=== PATIENT | female | born 1930 | race Hispanic/Latino ===

== ENCOUNTER 2018-03-07 07:04 | Emergency (ER) | payer MEDICARE ==
[~2018-03-07 07:04] MED LIST: FURO40TA5 PO; INSLAN SQ; LEVO500T2 PO; LEVO75TA10 PO; LORA10TA7 PO; PRAV40TA3 PO; VALS1TAB77 PO; [UNRECOGNIZED DRUG - OTHER] PO
[2018-03-07] MEDS ORDERED: MORPHINE SULFATE 2 MG/ML 1ML SYG ONE (07:40)
[2018-03-07] MEDS ORDERED: SODIUM CHLORIDE 0.9% 500ML 500 ML IV ONE (07:40)
[2018-03-07] MEDS ORDERED: ONDANSETRON HCL 4 MG/2 ML VIAL ONE (07:40)
[2018-03-07 07:53] LABS: APPEARANCE,URINE TURBID (CLEAR); BILIRUBIN,URINE NEGATIVE (NEGATIVE); COLOR,URINE RED (YELLOW); GLUCOSE, URINE (UA) 250 mg/dL (NEGATIVE); KETONES,URINE NEGATIVE (NEGATIVE); LEUKOCYTE ESTERASE ,URINE LARGE (NEGATIVE); NITRATE,URINE NEGATIVE (NEGATIVE); OCCULT BLOOD,URINE LARGE (NEGATIVE); PROTEIN,URINE 100 (NEGATIVE); UROBILINOGEN,URINE 0.2 mg/dL (0.2-1.0)
[2018-03-07 07:59] LABS: BASOPHILS % (AUTO) 0.5 % (0.0-5.0); EOSINOPHILS % (AUTO) 0.5 % (0.0-8.0); HEMATOCRIT 25.8 % (36-48); LYMPHOCYTES % (AUTO) 8.3 % (21.0-51.0); MEAN CORPUSCULAR HEMOGLOBIN 32.2 pg (27.0-33.0); MEAN CORPUSCULAR HGB CONC 33.2 g/dL (32.0-36.0); MEAN CORPUSCULAR VOLUME 96.8 fL (79-99); MONOCYTES % (AUTO) 7.1 % (3.0-13.0); NEUTROPHILS % (AUTO) 83.6 % (40.0-77.0); PLATELET COUNT (AUTO) 271 K/uL (130-400); RED BLOOD CELL COUNT(AUTO) 2.67 MIL/uL (4.00-5.50); RED CELL DISTRIBUTION WIDTH 13.2 % (11.0-15.5); WHITE BLOOD COUNT (AUTO) 8.9 K/uL (4.8-10.8)
[2018-03-07 08:16] LABS: PARTIAL THROMBOPLASTIN TIME 32.3 SEC (26.3-35.5); PROTHROMBIN TIME 10.5 SEC (9.6-11.6)
[2018-03-07 08:19] LABS: BACTERIA,URINE Rare /HPF (None Seen); RBC,URINE TNTC /HPF (0-1); SQUAMOUS EPITHELIAL CELL,UR Few /HPF (0-2)
[2018-03-07 08:21] LABS: CREATININE 2.2 mg/dL (0.5-1.5); POTASSIUM 4.6 mmol/L (3.5-5.1)
[2018-03-07 08:25] LABS: ALBUMIN 3.2 g/dL (3.5-5.0); BILIRUBIN,TOTAL 0.3 mg/dL (0.2-1.0); TOTAL PROTEIN, SERUM 7.5 g/dL (6.0-8.3)
[2018-03-07 08:42] LABS: B-TYPE NATRIURETIC PEPTIDE 262 pg/mL (0-100)
[2018-03-08] MEDS ORDERED: ONDA4TAB10 PO (22:41)
[2018-03-08] MEDS ORDERED: IRON PO (22:41)
[2018-03-08] MEDS ORDERED: LORA10TA7 PO (22:41)
[2018-03-08] MEDS ORDERED: METO-549 PO (22:41)
[2018-03-08] MEDS ORDERED: PRAV40TA3 PO (22:41)
[2018-03-08] MEDS ORDERED: CRAN500C3 PO (22:41)
[2018-03-08] MEDS ORDERED: APIX5TAB PO (22:41)
[2018-03-08] MEDS ORDERED: CAND4TAB3 PO (22:41)
[2018-03-11] MEDS ORDERED: CEPH500C2 PO (14:59)
== END 2018-03-07 11:18 | disposition home or self-care (01) ==
LOC: EDH 07:04
DX: N13.39 Other hydronephrosis (principal); N23 Unspecified renal colic; R31.9 Hematuria, unspecified; E11.9 Type 2 diabetes mellitus without complications; I10 Essential (primary) hypertension; I25.810 Atherosclerosis of coronary artery bypass graft(s) without angina pectoris; E07.9 Disorder of thyroid, unspecified; Z88.6 Allergy status to analgesic agent; Z95.1 Presence of aortocoronary bypass graft; Z86.73 Personal history of transient ischemic attack (TIA), and cerebral infarction without residual deficits; Z86.718 Personal history of other venous thrombosis and embolism; Z98.890 Other specified postprocedural states
CPT/HCPCS: 36415; 74176; 80053; 81001; 82270; 82550; 83605; 83690; 83880; 84484; 85025; 85610; 85730; 93005; 96374; 96375; 99284; J2405; J7040

== ENCOUNTER 2018-09-17 03:28 | Emergency (ER) | payer MEDICARE ==
[~2018-09-17 03:28] MED LIST changes: +CAND4TAB3 PO; +CEPH500C2 PO; +CRAN500C3 PO; +IRON PO; -LEVO500T2 PO; +METO-549 PO; +ONDA4TAB10 PO; -VALS1TAB77 PO; -[UNRECOGNIZED DRUG - OTHER] PO
== END 2018-09-17 04:51 | disposition home or self-care (01) ==
LOC: EDH 03:28
DX: K91.840 Postprocedural hemorrhage of a digestive system organ or structure following a digestive system procedure (principal); T45.515A Adverse effect of anticoagulants, initial encounter; I10 Essential (primary) hypertension; E11.9 Type 2 diabetes mellitus without complications; E78.5 Hyperlipidemia, unspecified; E07.9 Disorder of thyroid, unspecified; Z88.5 Allergy status to narcotic agent; Y92.89 Other specified places as the place of occurrence of the external cause
CPT/HCPCS: 99282

== ENCOUNTER 2021-01-08 13:56 | Inpatient (IN) | payer MEDICARE ==
[~2021-01-08] VITALS: Ht 152.4 cm; Wt 57.2 kg
[~2021-01-08 13:56] MED LIST changes: +CAND4TAB11 PO; -CAND4TAB3 PO
[2021-01-08 15:02] LABS: BASOPHILS % (AUTO) 0.5 % (0.0-5.0); EOSINOPHILS % (AUTO) 1.3 % (0.0-8.0); HEMATOCRIT 24.9 % (36-48); LYMPHOCYTES % (AUTO) 16.9 % (21.0-51.0); MEAN CORPUSCULAR HEMOGLOBIN 29.9 pg (27.0-33.0); MEAN CORPUSCULAR HGB CONC 31.3 g/dL (32.0-36.0); MEAN CORPUSCULAR VOLUME 95.4 fL (79-99); MONOCYTES % (AUTO) 8.6 % (3.0-13.0); NEUTROPHILS % (AUTO) 72.2 % (40.0-77.0); PLATELET COUNT (AUTO) 268 K/uL (130-400); RED BLOOD CELL COUNT(AUTO) 2.61 MIL/uL (4.00-5.50); RED CELL DISTRIBUTION WIDTH 14.6 % (11.0-15.5); WHITE BLOOD COUNT (AUTO) 8.2 K/uL (4.8-10.8)
[2021-01-08 15:24] LABS: CREATININE 1.9 mg/dL (0.5-1.5); POTASSIUM 4.2 mmol/L (3.5-5.1)
[2021-01-08] MEDS ORDERED: CAND32TA22 PO (15:24)
[2021-01-08] MEDS ORDERED: INSU100V12 SQ (15:24)
[2021-01-08] MEDS ORDERED: APIX5TAB PO (15:24)
[2021-01-08] MEDS ORDERED: FERR-82 PO (15:24)
[2021-01-08] MEDS ORDERED: TRAM1TAB PO (15:24)
[2021-01-08] MEDS ORDERED: ISOS30TA92 PO (15:24)
[2021-01-08] MEDS ORDERED: LEVO75CA5 PO (15:34)
[2021-01-08 15:36] LABS: ALBUMIN 3.1 g/dL (3.5-5.0); BILIRUBIN,DIRECT 0.1 mg/dL (0.0-0.3); BILIRUBIN,TOTAL 0.3 mg/dL (0.2-1.0); THYROID STIMULATING HORMONE 4.24 uIU/mL (0.36-3.74); TOTAL PROTEIN, SERUM 7.7 g/dL (6.0-8.3)
[2021-01-08] MEDS ORDERED: DIPHENHYDRAMINE HCL 25 MG CAPSULE PO PRN (16:30)
[2021-01-08] MEDS ORDERED: POTASSIUM CHLORIDE 20MEQ/100ML 100 ML IV PRN (16:30)
[2021-01-08] MEDS ORDERED: KCL 20 MEQ ERTAB PO PRN (16:30)
[2021-01-08] MEDS ORDERED: ALBUTEROL 0.083% 2.5 MG/3 ML INH IH PRN (16:30)
[2021-01-08] MEDS ORDERED: ONDANSETRON 4MG INJ IVP PRN (16:30)
[2021-01-08] MEDS ORDERED: POTASSIUM CHLORIDE 10% ELIXIR 20 MEQ/15 ML UDCUP PO PRN (16:30)
[2021-01-08] MEDS ORDERED: LIDOCAINE HCL-MPF 1% 2ML VIAL IJ PRN (16:30)
[2021-01-08] MEDS ORDERED: ZOLPIDEM TARTRATE 5 MG TAB PO PRN (16:30)
[2021-01-08] MEDS ORDERED: GUAIFENESIN-DM 200/20 MG 10 ML PO PRN (16:30)
[2021-01-08] MEDS ORDERED: HUMALOG PO SS1 SQ SCH (17:00)
[2021-01-08] MEDS: AZITHROMYCIN 500MG+NS 250ML IV SCH (17:22)
[2021-01-08] MEDS: CEFTRIAXONE 1G VIAL IVP SCH (17:22)
[2021-01-08] MEDS: IPRATROPIUM/ALBUTEROL SULFATE 3 ML SOLUTION IH SCH (18:31)
[2021-01-08] MEDS ORDERED: DEXTROSE 50%-WATER 50 ML DISP.SYRIN IV ONE (20:27)
[2021-01-08] MEDS: INSULIN LISPRO 100 UNIT/ML 3ML SQ SCH (21:00)
[2021-01-09] VITALS: BP 151/85
[2021-01-09 04:00] VITALS: BP 169/74
[2021-01-09 06:21] LABS: BASOPHILS % (AUTO) 0.5 % (0.0-5.0); EOSINOPHILS % (AUTO) 0.5 % (0.0-8.0); HEMATOCRIT 25.4 % (36-48); LYMPHOCYTES % (AUTO) 9.8 % (21.0-51.0); MEAN CORPUSCULAR HEMOGLOBIN 29.8 pg (27.0-33.0); MEAN CORPUSCULAR HGB CONC 29.9 g/dL (32.0-36.0); MEAN CORPUSCULAR VOLUME 99.6 fL (79-99); MONOCYTES % (AUTO) 6.8 % (3.0-13.0); NEUTROPHILS % (AUTO) 81.9 % (40.0-77.0); PLATELET COUNT (AUTO) 213 K/uL (130-400); RED BLOOD CELL COUNT(AUTO) 2.55 MIL/uL (4.00-5.50); RED CELL DISTRIBUTION WIDTH 14.5 % (11.0-15.5); WHITE BLOOD COUNT (AUTO) 8.1 K/uL (4.8-10.8)
[2021-01-09 06:52] LABS: ALBUMIN 2.8 g/dL (3.5-5.0); BILIRUBIN,DIRECT 0.1 mg/dL (0.0-0.3); BILIRUBIN,TOTAL 0.3 mg/dL (0.2-1.0); CREATININE 1.8 mg/dL (0.5-1.5); TOTAL PROTEIN, SERUM 6.9 g/dL (6.0-8.3)
[2021-01-09] MEDS: IPRATROPIUM/ALBUTEROL SULFATE 3 ML SOLUTION IH SCH ×5 (07:07→23:48)
[2021-01-09 08:50] VITALS: BP 188/90
[2021-01-09] MEDS: CRANBERRY 500 MG PO SCH (09:00)
[2021-01-09] MEDS: INSULIN LISPRO 100 UNIT/ML 3ML SQ SCH ×2 (09:00→21:00)
[2021-01-09] MEDS ORDERED: FUROSEMIDE 40 MG TABLET PO SCH (09:00)
[2021-01-09] MEDS: ISOSORBIDE MONO 30MG SR TAB PO SCH ×2 (09:23→21:01)
[2021-01-09] MEDS: ATORVASTATIN 10 MG TABLET PO SCH (09:23)
[2021-01-09] MEDS: INSULIN GLARGINE 100 UNITS/ML 10 ML VIAL SQ SCH (09:26)
[2021-01-09] MEDS: FERROUS SULFATE 325 MG TABLET.DR PO SCH (09:29)
[2021-01-09] MEDS: LOSARTAN 100 MG TABLET PO SCH (09:29)
[2021-01-09 12:27] VITALS: BP 146/83
[2021-01-09 14:37] LABS: INR 1.12 (0.85-1.15); PROTHROMBIN TIME 12.1 SEC (9.6-11.6)
[2021-01-09 15:42] VITALS: BP 125/79
[2021-01-09] MEDS: AZITHROMYCIN 500MG+NS 250ML IV SCH (16:08)
[2021-01-09] MEDS: CEFTRIAXONE 1G VIAL IVP SCH (16:08)
[2021-01-09 16:50] LABS: APPEARANCE BODY FLUID SLIGHTLY CLOUDY (CLEAR); BODY FLUID WBC 146 /cu. mm.; COLOR,BODY FLUID LT YELLOW (LT YELLOW); SPECIMENTYPE,BODY FLUID PLEURAL; TOTAL VOLUME,BODY FLUID 700 mL
[2021-01-09 16:51] LABS: BODY FLUID RBC 1421 /cu. mm.
[2021-01-09 17:22] LABS: BF LYMPHOCYTE 55 %; BF MESOTHELIAL 2 %; BF MONOCYTE 1 %; BF OTHER CELLS 2
[2021-01-09 20:00] VITALS: BP 137/68
[2021-01-09] MEDS ORDERED: DILTIAZEM 50MG VIAL IV ONE (23:15)
[2021-01-09] MEDS ORDERED: 0.9%NACL 100ML 100 ML ONE (23:16)
[2021-01-09] MEDS ORDERED: DILTIAZEM 125 MG/25 ML INJ 125 MG in 0.9%NACL 100ML 100 ML IV PRN (23:30)
[2021-01-10] VITALS: BP 115/60
[2021-01-10 04:00] VITALS: BP 109/52
[2021-01-10 05:22] LABS: MEAN CORPUSCULAR HGB CONC 31.3 g/dL (32.0-36.0); MEAN CORPUSCULAR VOLUME 95.8 fL (79-99); PLATELET COUNT (AUTO) 231 K/uL (130-400); RED CELL DISTRIBUTION WIDTH 14.6 % (11.0-15.5); WHITE BLOOD COUNT (AUTO) 7.3 K/uL (4.8-10.8)
[2021-01-10 05:43] LABS: ALBUMIN 2.6 g/dL (3.5-5.0); BILIRUBIN,TOTAL 0.2 mg/dL (0.2-1.0); CREATININE 2.1 mg/dL (0.5-1.5); POTASSIUM 3.6 mmol/L (3.5-5.1); TOTAL PROTEIN, SERUM 6.5 g/dL (6.0-8.3)
[2021-01-10 06:27] LABS: BAND NEUTROPHILS % (MANUAL) 1 % (0-2); BASOPHILS % (MANUAL) 1 % (0-2); EOSINOPHILS % (MANUAL) 4 % (1-6); LYMPHOCYTES % (MANUAL) 21 % (22-44); MONOCYTES % (MANUAL) 7 % (2-9); SEGMENTED NEUTROPHILS % 66 % (40-70)
[2021-01-10 06:28] LABS: MAN.DIFF COMMENT-IMPRESSION MANUAL DIFFERENTIAL; PLATELET MORPHOLOGY COMMENT ADEQUATE
[2021-01-10] MEDS: IPRATROPIUM/ALBUTEROL SULFATE 3 ML SOLUTION IH SCH ×3 (06:58→19:12)
[2021-01-10 07:30] VITALS: BP 155/63
[2021-01-10] MEDS: CRANBERRY 500 MG PO SCH (09:00)
[2021-01-10] MEDS ORDERED: METOPROLOL SUCCINATE 50 MG TAB.SR.24H PO SCH ×2 (09:00→09:30)
[2021-01-10] MEDS: INSULIN GLARGINE 100 UNITS/ML 10 ML VIAL SQ SCH (09:00)
[2021-01-10] MEDS: INSULIN LISPRO 100 UNIT/ML 3ML SQ SCH ×2 (09:00→21:48)
[2021-01-10] MEDS: LOSARTAN 100 MG TABLET PO SCH (10:24)
[2021-01-10] MEDS: LEVOTHYROXINE 75 MCG TABLET PO SCH (10:25)
[2021-01-10] MEDS: FERROUS SULFATE 325 MG TABLET.DR PO SCH (10:25)
[2021-01-10] MEDS: ATORVASTATIN 10 MG TABLET PO SCH (10:25)
[2021-01-10 10:29] VITALS: BP 139/71
[2021-01-10] MEDS: FUROSEMIDE 40MG VIAL IV SCH ×2 (10:33→17:32)
[2021-01-10 16:00] VITALS: BP 132/63
[2021-01-10] MEDS: AZITHROMYCIN 500MG+NS 250ML IV SCH (17:32)
[2021-01-10] MEDS: CEFTRIAXONE 1G VIAL IVP SCH (17:32)
[2021-01-10 20:00] VITALS: BP 117/60
[2021-01-11] VITALS (7 sets, daily range): BP systolic 142–175; BP diastolic 58–86
[2021-01-11] MEDS: IPRATROPIUM/ALBUTEROL SULFATE 3 ML SOLUTION IH SCH ×5 (00:13→23:50)
[2021-01-11] MEDS: FUROSEMIDE 40MG VIAL IV SCH ×3 (00:54→16:23)
[2021-01-11] MEDS ORDERED: DEXTROSE 50%-WATER 50 ML DISP.SYRIN IV ONE (01:08)
[2021-01-11] MEDS ORDERED: DEXTROSE 50%-WATER 50 ML DISP.SYRIN IV PRN (01:30)
[2021-01-11] MEDS ORDERED: GLUCAGON 1MG KIT 1 MG ML IM PRN (01:30)
[2021-01-11 04:33] LABS: BASOPHILS % (AUTO) 0.5 % (0.0-5.0); EOSINOPHILS % (AUTO) 3.1 % (0.0-8.0); HEMATOCRIT 23.8 % (36-48); LYMPHOCYTES % (AUTO) 14.6 % (21.0-51.0); MEAN CORPUSCULAR HEMOGLOBIN 29.8 pg (27.0-33.0); MEAN CORPUSCULAR HGB CONC 30.3 g/dL (32.0-36.0); MEAN CORPUSCULAR VOLUME 98.3 fL (79-99); NEUTROPHILS % (AUTO) 67.1 % (40.0-77.0); PLATELET COUNT (AUTO) 234 K/uL (130-400); RED BLOOD CELL COUNT(AUTO) 2.42 MIL/uL (4.00-5.50); RED CELL DISTRIBUTION WIDTH 14.6 % (11.0-15.5); WHITE BLOOD COUNT (AUTO) 7.8 K/uL (4.8-10.8)
[2021-01-11 04:51] LABS: ALBUMIN 2.8 g/dL (3.5-5.0); BILIRUBIN,TOTAL 0.1 mg/dL (0.2-1.0); CREATININE 2.5 mg/dL (0.5-1.5); POTASSIUM 3.9 mmol/L (3.5-5.1); TOTAL PROTEIN, SERUM 6.8 g/dL (6.0-8.3)
[2021-01-11] MEDS: LEVOTHYROXINE 75 MCG TABLET PO SCH (06:31)
[2021-01-11] MEDS: CRANBERRY 500 MG PO SCH (08:26)
[2021-01-11] MEDS: FERROUS SULFATE 325 MG TABLET.DR PO SCH (08:31)
[2021-01-11] MEDS: LOSARTAN 100 MG TABLET PO SCH (08:31)
[2021-01-11] MEDS: ATORVASTATIN 10 MG TABLET PO SCH (08:31)
[2021-01-11] MEDS: INSULIN GLARGINE 100 UNITS/ML 10 ML VIAL SQ SCH (08:50)
[2021-01-11] MEDS ORDERED: METOPROLOL SUCCINATE 50 MG TAB.SR.24H PO SCH (09:00)
[2021-01-11] MEDS: INSULIN LISPRO 100 UNIT/ML 3ML SQ SCH ×3 (11:30→20:25)
[2021-01-11] MEDS: AZITHROMYCIN 500MG+NS 250ML IV SCH (16:21)
[2021-01-11] MEDS: CEFTRIAXONE 1G VIAL IVP SCH (16:22)
[2021-01-11] MEDS: METOPROLOL SUCCINATE 50 MG TAB.SR.24H PO SCH (20:25)
[2021-01-12] MEDS: IPRATROPIUM/ALBUTEROL SULFATE 3 ML SOLUTION IH SCH ×5 (00:43→23:19)
[2021-01-12] MEDS: FUROSEMIDE 40MG VIAL IV SCH ×4 (03:43→23:54)
[2021-01-12 04:00] VITALS: BP 177/82
[2021-01-12 04:55] LABS: BASOPHILS % (AUTO) 0.4 % (0.0-5.0); EOSINOPHILS % (AUTO) 2.2 % (0.0-8.0); HEMATOCRIT 27.9 % (36-48); LYMPHOCYTES % (AUTO) 14.3 % (21.0-51.0); MEAN CORPUSCULAR HEMOGLOBIN 29.7 pg (27.0-33.0); MEAN CORPUSCULAR HGB CONC 31.5 g/dL (32.0-36.0); MEAN CORPUSCULAR VOLUME 94.3 fL (79-99); MONOCYTES % (AUTO) 11.6 % (3.0-13.0); NEUTROPHILS % (AUTO) 70.8 % (40.0-77.0); PLATELET COUNT (AUTO) 217 K/uL (130-400); RED BLOOD CELL COUNT(AUTO) 2.96 MIL/uL (4.00-5.50); RED CELL DISTRIBUTION WIDTH 14.9 % (11.0-15.5); WHITE BLOOD COUNT (AUTO) 7.4 K/uL (4.8-10.8)
[2021-01-12 05:11] LABS: ALBUMIN 2.8 g/dL (3.5-5.0); BILIRUBIN,TOTAL 0.2 mg/dL (0.2-1.0); CREATININE 2.3 mg/dL (0.5-1.5); POTASSIUM 3.9 mmol/L (3.5-5.1); TOTAL PROTEIN, SERUM 6.8 g/dL (6.0-8.3)
[2021-01-12] MEDS: INSULIN LISPRO 100 UNIT/ML 3ML SQ SCH ×4 (06:09→20:10)
[2021-01-12] MEDS: LEVOTHYROXINE 75 MCG TABLET PO SCH (06:19)
[2021-01-12 08:00] VITALS: BP 158/50
[2021-01-12] MEDS: FERROUS SULFATE 325 MG TABLET.DR PO SCH (08:43)
[2021-01-12] MEDS: LOSARTAN 100 MG TABLET PO SCH (08:43)
[2021-01-12] MEDS: METOPROLOL SUCCINATE 50 MG TAB.SR.24H PO SCH (08:44)
[2021-01-12] MEDS: ISOSORBIDE MONO 30MG SR TAB PO SCH (08:44)
[2021-01-12] MEDS: ATORVASTATIN 10 MG TABLET PO SCH (08:44)
[2021-01-12] MEDS: CRANBERRY 500 MG PO SCH (08:44)
[2021-01-12] MEDS: INSULIN GLARGINE 100 UNITS/ML 10 ML VIAL SQ SCH (08:51)
[2021-01-12] MEDS: SOTALOL HCL 80 MG TABLET PO SCH ×2 (11:12→20:30)
[2021-01-12 12:00] VITALS: BP 123/82
[2021-01-12] MEDS: AZITHROMYCIN 500MG+NS 250ML IV SCH (15:48)
[2021-01-12 16:00] VITALS: BP 112/74
[2021-01-12] MEDS: CEFTRIAXONE 1G VIAL IVP SCH (16:06)
[2021-01-12 19:45] VITALS: BP 147/58
[2021-01-12] MEDS ORDERED: ALPRAZOLAM 0.25 MG TABLET PO ONE (20:30)
[2021-01-13] VITALS: BP 137/65
[2021-01-13 04:24] VITALS: BP 139/58
[2021-01-13 05:40] LABS: MEAN CORPUSCULAR HGB CONC 31.4 g/dL (32.0-36.0); MEAN CORPUSCULAR VOLUME 95.7 fL (79-99); RED BLOOD CELL COUNT(AUTO) 3.03 MIL/uL (4.00-5.50); RED CELL DISTRIBUTION WIDTH 14.6 % (11.0-15.5); WHITE BLOOD COUNT (AUTO) 7.6 K/uL (4.8-10.8)
[2021-01-13 06:02] LABS: ALBUMIN 2.6 g/dL (3.5-5.0); BILIRUBIN,TOTAL 0.3 mg/dL (0.2-1.0); CREATININE 2.4 mg/dL (0.5-1.5); POTASSIUM 4.3 mmol/L (3.5-5.1); TOTAL PROTEIN, SERUM 6.6 g/dL (6.0-8.3)
[2021-01-13] MEDS: IPRATROPIUM/ALBUTEROL SULFATE 3 ML SOLUTION IH SCH ×2 (06:18→11:07)
[2021-01-13] MEDS: INSULIN LISPRO 100 UNIT/ML 3ML SQ SCH ×2 (06:50→11:30)
[2021-01-13] MEDS: LEVOTHYROXINE 75 MCG TABLET PO SCH (06:53)
[2021-01-13 08:00] VITALS: BP 171/82
[2021-01-13] MEDS: INSULIN GLARGINE 100 UNITS/ML 10 ML VIAL SQ SCH (08:11)
[2021-01-13] MEDS: LOSARTAN 100 MG TABLET PO SCH (08:14)
[2021-01-13] MEDS: FUROSEMIDE 40MG VIAL IV SCH (08:14)
[2021-01-13] MEDS: ISOSORBIDE MONO 30MG SR TAB PO SCH (08:15)
[2021-01-13] MEDS: SOTALOL HCL 80 MG TABLET PO SCH (08:15)
[2021-01-13] MEDS: ATORVASTATIN 10 MG TABLET PO SCH (08:15)
[2021-01-13] MEDS: FERROUS SULFATE 325 MG TABLET.DR PO SCH (08:16)
[2021-01-13] MEDS: CRANBERRY 500 MG PO SCH (09:00)
[2021-01-13 11:55] VITALS: BP 131/71
== END 2021-01-13 13:15 | disposition home or self-care (01) | DRG 193 ==
LOC: EDH 13:56 → EDHIP 13:57 → OBSVTOIN 13:57 → 4CH 01-09
PROVIDERS: ADMIT Internal Medicine; ATTEND Internal Medicine
PROC: 0W993ZZ Drainage of Right Pleural Cavity, Percutaneous Approach (ICD-10-PCS; principal; 2021-01-09)
PROC: 30233N1 Transfusion of Nonautologous Red Blood Cells into Peripheral Vein, Percutaneous Approach (ICD-10-PCS; 2021-01-11)
DX: J18.9 Pneumonia, unspecified organism (principal); J96.90 Respiratory failure, unspecified, unspecified whether with hypoxia or hypercapnia; I13.0 Hypertensive heart and chronic kidney disease with heart failure and stage 1 through stage 4 chronic kidney disease, or unspecified chronic kidney disease; J91.8 Pleural effusion in other conditions classified elsewhere; I25.10 Atherosclerotic heart disease of native coronary artery without angina pectoris; E03.9 Hypothyroidism, unspecified; I49.3 Ventricular premature depolarization; I48.91 Unspecified atrial fibrillation; N18.9 Chronic kidney disease, unspecified; D64.9 Anemia, unspecified; I27.20 Pulmonary hypertension, unspecified; I34.0 Nonrheumatic mitral (valve) insufficiency; E88.09 Other disorders of plasma-protein metabolism, not elsewhere classified; E11.22 Type 2 diabetes mellitus with diabetic chronic kidney disease; I50.9 Heart failure, unspecified; Z88.5 Allergy status to narcotic agent; Z79.01 Long term (current) use of anticoagulants; Z95.1 Presence of aortocoronary bypass graft; Z86.718 Personal history of other venous thrombosis and embolism; Z86.73 Personal history of transient ischemic attack (TIA), and cerebral infarction without residual deficits
CPT/HCPCS: 32555; 36415; 36430; 71045; 76604; 80048; 80053; 80076; 82948; 84443; 85025; 85027; 85610; 85730; 86850; 86900; 86901; 86923; 87071; 87205; 89051; 93005; 93306; 93356; 94640; 94664; 96374; 97039; C1729; G0378; J0456; J0696; J1940; J7070; P9016; Q0163

== ENCOUNTER 2021-01-13 14:09 | Observation (INO) | payer MEDICARE ==
[~2021-01-13] VITALS: Ht 154.9 cm; Wt 65.8 kg
[~2021-01-13 14:09] MED LIST changes: +CAND32TA22 PO; -CAND4TAB11 PO; -CEPH500C2 PO; +FERR-82 PO; -INSLAN SQ; +INSU100V12 SQ; -IRON PO; +ISOS30TA92 PO; +LEVO75CA5 PO; -LEVO75TA10 PO; -LORA10TA7 PO; -METO-549 PO; -ONDA4TAB10 PO
[2021-01-13] MEDS ORDERED: PROPOFOL 1000 MG/100 ML 100 ML IV ONE (14:18)
[2021-01-13 14:23] LABS: ABG BASE EXCESS -5.7 mmol/L (-2.0-3.0); ABG HCO3 18.3 mmol/L (21.0-28.0); ABG OXYGEN SATURATION 98.5 % (95.0-99.0); ABG PCO2 31 mmHg (32-45)
[2021-01-13 14:43] LABS: BASOPHILS % (AUTO) 0.6 % (0.0-5.0); EOSINOPHILS % (AUTO) 1.9 % (0.0-8.0); HEMATOCRIT 29.7 % (36-48); LYMPHOCYTES % (AUTO) 42.6 % (21.0-51.0); MEAN CORPUSCULAR HEMOGLOBIN 29.8 pg (27.0-33.0); MEAN CORPUSCULAR HGB CONC 31.6 g/dL (32.0-36.0); MEAN CORPUSCULAR VOLUME 94.3 fL (79-99); MONOCYTES % (AUTO) 5.6 % (3.0-13.0); NEUTROPHILS % (AUTO) 43.9 % (40.0-77.0); NUCLEATED RED BLOOD CELLS 0.6 % (0.0-0.19); PLATELET COUNT (AUTO) 190 K/uL (130-400); RED BLOOD CELL COUNT(AUTO) 3.15 MIL/uL (4.00-5.50); RED CELL DISTRIBUTION WIDTH 14.6 % (11.0-15.5); WHITE BLOOD COUNT (AUTO) 12.2 K/uL (4.8-10.8)
[2021-01-13 14:46] LABS: INR 1.16 (0.85-1.15); PROTHROMBIN TIME 12.5 SEC (9.6-11.6)
[2021-01-13 14:56] LABS: MAGNESIUM 1.8 mg/dL (1.80-2.40)
[2021-01-13 14:57] LABS: CREATININE 2.5 mg/dL (0.5-1.5); POTASSIUM 4.2 mmol/L (3.5-5.1)
[2021-01-13] MEDS ORDERED: ZOSYN 3.375GM+NS 50ML 3.38 GM in 0.9%NACL 50ML 50 ML IV ONE (15:00)
[2021-01-13] MEDS ORDERED: 0.9%NACL 100ML 100 ML ONE (15:05)
[2021-01-13 15:11] LABS: ALBUMIN 2.3 g/dL (3.5-5.0); BILIRUBIN,TOTAL 0.2 mg/dL (0.2-1.0); TOTAL PROTEIN, SERUM 5.9 g/dL (6.0-8.3)
[2021-01-13] MEDS ORDERED: ZOSYN 3.375GM +NS 50ML IV ONE (15:30)
[2021-01-13] MEDS ORDERED: NOREPINEPHRIN 4MG/NS 250ML 250 ML IV ONE ×2 (15:37→22:16)
[2021-01-13] MEDS ORDERED: DEXTROSE 50%-WATER 50 ML DISP.SYRIN IV PRN (17:00)
[2021-01-13] MEDS ORDERED: MIDAZOLAM 100MG-0.9% NS 100ML 100ML BAG IV ONE ×2 (17:00→18:30)
[2021-01-13] MEDS ORDERED: RENAL DOSE IV PRN (17:00)
[2021-01-13] MEDS ORDERED: GLUCAGON 1MG KIT 1 MG ML IM PRN (17:00)
[2021-01-13] MEDS ORDERED: PHENYLEPHRINE HCL 10 MG in 0.9% NACL 250ML 250 ML IV PRN (17:00)
[2021-01-13] MEDS ORDERED: ACETAMINOPHEN 650 MG SUPPOSITORY RC PRN (17:00)
[2021-01-13] MEDS ORDERED: PROPOFOL 1000 MG/100 ML 100 ML IV SCH (17:00)
[2021-01-13] MEDS ORDERED: VANCOMYCIN PROTOCOL PER PHARMACY IV SCH ×2 (17:00→20:30)
[2021-01-13] MEDS ORDERED: ACETAMINOPHEN 325 MG TAB PO PRN (17:00)
[2021-01-13] MEDS ORDERED: CEFEPIME HCL 1 GM VIAL IVP SCH (17:00)
[2021-01-13] MEDS ORDERED: VANCOMYCIN 1G VIAL IVPB ONE (17:00)
[2021-01-13 17:27] LABS: ABG BASE EXCESS -7.3 mmol/L (-2.0-3.0); ABG OXYGEN SATURATION 92.3 % (95.0-99.0); ABG PCO2 24 mmHg (32-45)
[2021-01-13] MEDS ORDERED: SOLU-MEDROL 125MG VIAL IVP ONE (17:30)
[2021-01-13] MEDS ORDERED: 0.9%NACL 1000ML 1,000 ML IV SCH (17:30)
[2021-01-13] MEDS ORDERED: CEFEPIME HCL 2 GM VIAL IVP SCH ×2 (18:00→20:30)
[2021-01-13] MEDS ORDERED: VANCOMYCIN 1.25GM/NS 250ML IVPB ONE ×2 (18:00)
[2021-01-13] MEDS ORDERED: IPRATROPIUM/ALBUTEROL SULFATE 3 ML SOLUTION IH SCH (18:00)
[2021-01-13] MEDS ORDERED: CHLORHEXIDINE GLUCONATE 473 ML MOUTHWASH MM SCH (18:00)
[2021-01-13] MEDS ORDERED: LACTATED RINGERS 1000ML 1,000 ML IV SCH (18:30)
[2021-01-13] MEDS ORDERED: FENTANYL CITRATE PF 0.05 MG/ML 1,000 MCG in 0.9%NACL 100ML 100 ML IVPB SCH (18:30)
[2021-01-13] MEDS ORDERED: MIDAZOLAM 100MG-0.9% NS 100ML 100 ML IV SCH (19:00)
[2021-01-13] MEDS ORDERED: FENTANYL 2500MCG+NS 250ML 250 ML IV SCH (19:00)
[2021-01-13] MEDS ORDERED: INSULIN HUMULIN R 100 UNIT/ML 3ML SQ SCH (21:00)
[2021-01-13] MEDS ORDERED: ARTIFICIAL TEARS 3.5 GM OINTMENT OU SCH (21:00)
[2021-01-13] MEDS ORDERED: HEPARIN 25,000 UNITS/250ML D5W 250 ML IV SCH (21:00)
[2021-01-13] MEDS ORDERED: SOLU-MEDROL 40MG VIAL IVP SCH (21:00)
[2021-01-13] MEDS ORDERED: SODIUM BICARB 50MEQ 50ML VIAL IV PRN (21:00)
[2021-01-13] MEDS ORDERED: FUROSEMIDE 40MG VIAL IV SCH (21:00)
[2021-01-13] MEDS ORDERED: FUROSEMIDE 20MG VIAL IV SCH (21:00)
[2021-01-13 21:13] LABS: ABG BASE EXCESS -6.1 mmol/L (-2.0-3.0); ABG HCO3 14.5 mmol/L (21.0-28.0); ABG OXYGEN SATURATION 99.8 % (95.0-99.0); ABG PCO2 20 mmHg (32-45)
[2021-01-13 21:28] LABS: APPEARANCE,URINE Clear (CLEAR); BILIRUBIN,URINE Negative (NEGATIVE); COLOR,URINE Yellow (YELLOW); GLUCOSE, URINE (UA) Negative (NEGATIVE); KETONES,URINE Negative (NEGATIVE); LEUKOCYTE ESTERASE ,URINE Negative (NEGATIVE); NITRATE,URINE Negative (NEGATIVE); OCCULT BLOOD,URINE Trace (NEGATIVE); PROTEIN,URINE POS 2+ mg/dL (NEGATIVE); UROBILINOGEN,URINE 0.2 mg/dL (0.2-1.0)
[2021-01-13 21:39] LABS: RBC,URINE 0-1 /HPF (0-1); WBC,URINE 0-1 /HPF (0-1)
[2021-01-13 21:40] LABS: BACTERIA,URINE Few /HPF (None Seen); SQUAMOUS EPITHELIAL CELL,UR Rare /HPF (0-2)
[2021-01-13] MEDS ORDERED: IPRATROPIUM/ALBUTEROL SULFATE 3 ML SOLUTION IH PRN (22:00)
[2021-01-13] MEDS ORDERED: METRONIDAZOLE 500MG/100ML BAG 100 ML IVPB SCH (22:00)
[2021-01-13] MEDS ORDERED: FUROSEMIDE 20MG VIAL ONE (22:44)
[2021-01-14] MEDS ORDERED: ATROPINE 1MG SYG IVP ONE
[2021-01-14] MEDS ORDERED: AMIODARONE 900MG VIAL 450 MG in DEXTROSE 5%-WATER 250 ML IV SCH ×2
[2021-01-14] MEDS ORDERED: DOPAMINE 800MG/D5 250ML 250 ML IV ONE (00:09)
[2021-01-14 02:36] VITALS: BP 63/21
[2021-01-14] MEDS ORDERED: PANTOPRAZOLE 40 MG/VIAL IVP SCH (09:00)
[2021-01-15] MEDS ORDERED: VANCOMYCIN 750MG VIAL IVPB SCH (16:00)
[2021-01-15] MEDS ORDERED: 0.9% NACL 250ML 250 ML IV SCH (16:00)
== END 2021-01-14 02:38 ==
LOC: EDH 14:09 → INTOOBSV 16:20 → EDHIP 16:20
PROVIDERS: ADMIT Internal Medicine; ATTEND Internal Medicine
DX: I46.9 Cardiac arrest, cause unspecified (principal); Z20.822 Contact with and (suspected) exposure to COVID-19; A41.9 Sepsis, unspecified organism; N17.9 Acute kidney failure, unspecified; I13.0 Hypertensive heart and chronic kidney disease with heart failure and stage 1 through stage 4 chronic kidney disease, or unspecified chronic kidney disease; I50.9 Heart failure, unspecified; N18.9 Chronic kidney disease, unspecified; E11.22 Type 2 diabetes mellitus with diabetic chronic kidney disease; D63.8 Anemia in other chronic diseases classified elsewhere; I25.10 Atherosclerotic heart disease of native coronary artery without angina pectoris; E03.9 Hypothyroidism, unspecified; R74.01 Elevation of levels of liver transaminase levels; E78.00 Pure hypercholesterolemia, unspecified; R77.8 Other specified abnormalities of plasma proteins; I47.2 Ventricular tachycardia; I48.91 Unspecified atrial fibrillation; J18.9 Pneumonia, unspecified organism; J98.11 Atelectasis; R57.9 Shock, unspecified; Z79.01 Long term (current) use of anticoagulants; Z85.528 Personal history of other malignant neoplasm of kidney; Z86.73 Personal history of transient ischemic attack (TIA), and cerebral infarction without residual deficits; Z88.5 Allergy status to narcotic agent; Z95.1 Presence of aortocoronary bypass graft; Z96.651 Presence of right artificial knee joint; Z79.4 Long term (current) use of insulin
CPT/HCPCS: 36415; 36600 ×2; 70450; 71045 ×3; 71250; 80053; 81001; 82435; 82550 ×3; 82803 ×3; 82947; 83605 ×3; 83735; 83874 ×2; 83880; 84132; 84145; 84295; 84484 ×3; 85018; 85025; 85378; 85610; 85730; 87040 ×2; 87088; 87635; 87804 ×2; 92950; 93005; 94002; 94003; 96365; 96366 ×2; 96368; 96375; 99291; G0378 ×5; J0461; J1265; J1940; J2543; J2704; J3010; J3370; J3490 ×3; J7050